=== PATIENT | male | born 1970 ===

== ENCOUNTER 2018-12-08 11:43 | Emergency (ER) | payer SELFPAY | END 2018-12-08 15:11 | disposition home or self-care (01) | LOC: ERS 11:43 | DX: S09.90XA Unspecified injury of head, initial encounter (principal); E78.5 Hyperlipidemia, unspecified; W22.8XXA Striking against or struck by other objects, initial encounter; Y92.69 Other specified industrial and construction area as the place of occurrence of the external cause | CPT/HCPCS: 99283 ==